=== PATIENT | male | born 1995 | race Caucasian/White ===

== ENCOUNTER 2017-09-03 21:32 | Emergency (ER) | payer SELFPAY ==
[2017-09-03 21:48] VITALS: BP 114/70; PULSE 84; RESP 18; TEMP 98.6; O2SAT 98
[2017-09-03] MEDS ORDERED: Bacitracin 500 Units/gm Oint Foilpak UD ONE (21:54)
[2017-09-03] MEDS ORDERED: Lidocaine 2% Inj (20ml) INFIL ONE (22:12)
--- NOTE | 2017-09-03 22:14 | C.PDOC ---
History Of Present Illness 22 yo male come in for evaluation of Right wrist laceration sustained at home [employer]. Pt sts," was repair car and cut myself by accident by one of tools". Otherwise, pt denies significant bleeding, deformity to injured arm, weakness, sensory or vascular deficits o Right wrist. Ambulate to ED for evaluation, not in any apparent distress. Time Seen by Provider: 09/03/17 21:46 Chief Complaint (Nursing): Abnormal Skin Integrity History Per: Patient Past Medical History Reviewed: Historical Data, Nursing Documentation, Vital Signs Vital Signs: Last Vital Signs Temp 98.6 F 09/03/17 21:45 Pulse 84 09/03/17 21:45 Resp 18 09/03/17 21:45 BP 114/70 09/03/17 21:45 Pulse Ox 98 09/03/17 21:45 - Medical History PMH: No Chronic Diseases Family History: States: Unknown Family Hx - Social History Hx Alcohol Use: No Hx Substance Use: No - Immunization History Hx Tetanus Toxoid Vaccination: Yes (2 yrs ago) Hx Influenza Vaccination: No Hx Pneumococcal Vaccination: No Review Of Systems Except As Marked, All Systems Reviewed And Found Negative. Constitutional: Negative for: Fever, Chills Skin: Positive for: Lesions Neurological: Negative for: Weakness, Numbness Physical Exam - Physical Exam Appears: Well, Non-toxic, No Acute Distress Skin: Normal Color, Warm, Other (2cm cutaneous lacetaion to volar aspect distal right foream, mild bloody oozing noted, no wound FB, no palpable deformity. FAROM, no neurovascular deficits.) Extremity: Normal ROM (Right wrist), No Tenderness, Capillary Refill (less than 2sec to Right hand), No Deformity, No Swelling Neurological/Psych: Oriented x3, Normal Speech, Normal Motor, Normal Sensation, Normal Reflexes ED Course And Treatment O2 Sat by Pulse Oximetry: 98 Pulse Ox Interpretation: Normal Progress Note: On re-eval, pt is afebrile, hemodynamicaly stable. Non-toxic. Right wrist: laceration repaited w/sutures. FAROM, no neurovascular deficits. Pt advised on wound care. ref. to f/u with PMD in2 days for wound care. return to ED if any worsening or new changes. Laceration - Laceration Repair Right wrist Wound Length (In cm): 2cm Description Of Wound: Linear Wound Cleansed With: Betadine, Sterile Saline Anesthesia: Lidocaine 2% Wound Examination: Irrigated With Saline, No FB With Wound Exploration, No Tendon Injury With Wound Exploration Wound Closure: Suture (#5) Suture Technique And Material Used: Interrupted, Nylon (3-0), Chromic (4-0#1) Wound Complexity: Simple Disposition Counseled Patient/Family Regarding: Diagnosis, Need For Followup - Disposition Referrals: [facility] [Outside] Disposition: HOME/ ROUTINE Disposition Time: 22:12 Condition: IMPROVED Additional Instructions: CLEAN WOUND DAILY WITH PEROXIDE AVOID WATER EXPOSURE 24 HOURS LIGHT DUTY TO INJURED HAND SUTURE REMOVAL IN 10 DAYS RETURN TO ED AT ANY TIME OF ANY SIGN OF INFECTION. Instructions: Laceration (ED) - Clinical Impression Clinical Impression: Laceration
== END 2017-09-03 22:36 | disposition home or self-care (01) ==
LOC: C.ER 21:32
DX: S61.511A Laceration without foreign body of right wrist, initial encounter (principal); W27.8XXA Contact with other nonpowered hand tool, initial encounter; Y92.009 Unspecified place in unspecified non-institutional (private) residence as the place of occurrence of the external cause